=== PATIENT | male | born 1990 | race African-American/Black ===

== ENCOUNTER → 2019-09-05 15:32 | Outpatient (CLI) | payer OTHER, SELFPAY ==
--- NOTE | 2019-09-05 | DI.MRI.S_ITS ---
PROCEDURE: MR KNEE LT WO CON INDICATIONS: Sprain of unspecified site of left knee. Left knee pain post twisting injury TECHNIQUE: Noncontrast sagittal PD fast spin echo and T2 fast spin echo with fat saturation, sagittal 3-D FLASH with fat saturation; coronal T1 spin echo and PD fast spin echo with fat saturation, and axial PD fast spin echo with fat saturation through the knee. COMPARISON: None. FINDINGS: Image quality: Excellent. Menisci: Medial meniscus intact. Lateral meniscal tear involving the body and anterior horn, with a vertical orientation, and abnormal signal extending to the superior articular surface as well as the periphery. Cruciate ligaments: Complete rupture of anterior cruciate ligament Posterior cruciate ligament appears intact. Medial structures: Low-grade sprain of the MCL. Semimembranosus tendon appears intact. Visualized portions of the pes anserinus tendons appear normal. No abnormal bursal fluid. Lateral structures: The lateral collateral ligament demonstrates thickening and intrasubstance signal change in keeping with low grade sprain, statistically chronic, although technically age indeterminate. Biceps femoris tendon appears intact. Edema present within the popliteus muscle in keeping with acute strain. Iliotibial band appears intact. Anterior structures: Quadriceps tendon intact. Medial and lateral patellofemoral ligaments intact. There is mild patellar tendinopathy. Prepatellar and superficial infrapatellar subcutaneous edema/fluid. Bones and cartilage: Focal marrow contusions involving the lateral femoral condyle, posterolateral and posteromedial tibial plateau. Within the medial compartment, no focal articular cartilage defect Within the lateral compartment, no focal articular cartilage defect Within the patellofemoral compartment, and no focal articular cartilage defect Joint space: Large joint effusion. Small Bob's cyst measuring 2 cm in the cephalocaudad dimension. No specific evidence of intra-articular loose body. IMPRESSION: Multiple marrow contusions in keeping with pivot shift mechanism of injury, involving the mid lateral femoral condyle, posterolateral and posteromedial tibial plateau. Complete rupture of the anterior cruciate ligament. Low-grade MCL sprain without complete rupture. Mild patellar tendinopathy, technically age indeterminate. Small Bob's cyst. Large joint effusion Popliteus strain. Dictated by: Clyde Freeman M.D. on 09/05/2019 at 16:32 Approved by: Clyde Freeman M.D. on 09/05/2019 at 16:40
== END ==
DX: S83.512A Sprain of anterior cruciate ligament of left knee, initial encounter (principal); S83.412A Sprain of medial collateral ligament of left knee, initial encounter; S80.02XA Contusion of left knee, initial encounter; S83.8X2A Sprain of other specified parts of left knee, initial encounter; M71.22 Synovial cyst of popliteal space [Baker], left knee; M25.462 Effusion, left knee; X50.9XXA Other and unspecified overexertion or strenuous movements or postures, initial encounter
CPT/HCPCS: 73721